=== PATIENT | male | born 1960 | race Caucasian/White ===

== ENCOUNTER 2024-11-13 07:20 | Day surgery (SDC) | payer BC ==
[2024-11-10 13:22] LABS: Absolute Basophils 0.1 K/uL (0-0.5); Absolute Eosinophils 0.2 K/uL (0-0.5); Absolute Lymphocytes (CBC) 2.2 K/uL (0.7-4.9); Absolute Monocytes 0.6 K/uL (0.1-1.3); Absolute Neutrophil 3.9 K/uL (1.8-8.0); Basophils % 0.7 % (0-1.3); Eosinophils % 3.5 % (0-4.4); Hematocrit 41.4 % (39.6-49.0); Hemoglobin 14.1 g/dL (13.6-17.9); Lymphocytes % 31.2 % (15.3-44.8); MCH 30.4 pg (27.0-35.0); MCHC 34.1 g/dL (32.0-36.0); MCV 88.9 fL (80-100); MPV 8.3 fL (7.6-11.3); Monocytes % 8.7 % (3.3-12.3); Neutrophils % 55.9 % (41.7-73.7); Platelets 326 thou/uL (152-406); RBC Red Blood Cell Count 4.66 M/uL (4.33-5.43); Red Cell Distribution Width 14.4 % (12.1-15.2)
--- NOTE | 2024-11-10 13:22 | RAD REPORT ---
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 COMPARISON: No prior exam. FINDINGS: The lungs are well inflated and clear. The heart is upper limit of normal in size. No displaced fract ures evident. Moderate hiatal hernia.
[2024-11-10 13:29] LABS: PT Prothrombin Time 10.3 SECONDS (10-13.0); PTT, Activated Partial Thromb 35.2 SECONDS (27.2-37.4); Protime INR 0.9
[2024-11-10 13:41] LABS: Anion Gap 6.5 mEq/L (5.0-15.0); Potassium 4.5 mEq/L (3.5-5.1)
--- NOTE | 2024-11-10 14:12 | EKG ---
Test Date: 2024-11-10 Test Time: 13:05:56 [place] Operator: YANN MEASUREMENT RESULTS: Intervals: Rate: 57 [place]: 154 QRSD: 88 QT: 442 QTc: 430 [place]: P: 64 [place]: 154 QRS: -11 T: 99 INTERPRETIVE STATEMENTS: Sinus bradycardia Nonspecific ST and T wave abnormality Abnormal ECG Compared to ECG 11/25/2004 08:14:00 ST (T wave) deviation now present Sinus rhythm no longer present Electronically Signed On 11-10-24 14:12:08 CDT by Ian Lazo
[2024-11-13] MEDS ORDERED: FENTANYL CITR 100 MCG/2 ML ONE (07:21)
[2024-11-13] MEDS ORDERED: MIDAZOLAM HCL 2 MG/2 ML INJ ONE (07:21)
[2024-11-13] MEDS ORDERED: NITROGLYCERIN/D5W 50 MG/250 ML BTL IV ONE (07:29)
[2024-11-13] MEDS ORDERED: HEPA 1000U/500MLS 2,000 UNIT/1,000 ML BAG IV ONE (07:29)
[2024-11-13] MEDS ORDERED: HEPARIN 10,000 UNIT/10 ML VIAL IV ONE (07:30)
[2024-11-13] MEDS ORDERED: LIDOCAINE 1% 20 ML MDV ONE (07:30)
[2024-11-13] MEDS: NA CHLORIDE 0.9% 500 ML ONE (08:32)
[2024-11-13 09:48] VITALS: O2SAT 98
[2024-11-13 10:52] VITALS: BP 119/86; TEMP 96.9
--- NOTE | 2024-11-13 11:21 | OP ---
Date of Procedure: 11/13/2024 Surgeon: Ian Lazo Procedure Performed: Bilateral renal angiogram. Indication For Procedure: High blood pressure with abnormal renal artery duplex. Complications: None. Estimated Blood Loss: Less than 50 cc. Access: Right common femoral artery, closed by Mynx. Sedation Time: 20 minutes with 1 of Versed and 25 of fentanyl. Description Of Procedure: After risks, and benefits, and alternatives were explained to the patient, patient agreed to proceed with procedure and signed informed consent. The patient was brought back to the solar lab technician, prepped and draped in a sterile fashion. Time-out was performed. Sedation was admi nistered. Next, the right common femoral artery, a 5-[place] access was obtained using an ultrasound- guided micropuncture technique. A 4-[place] IM catheter was advanced to the lower abdominal aorta. S elective angiogram was done of the right and left renal arteries. At the end of procedure, catheter was removed over a J-wire. Sheath was removed. Mynx was applied. Hemostasis was achieved, and the patient was moved back to recovery in stable condition. Findings: 1. The right renal artery with mid 20% to 30% calcified disease, then mild luminal irregularities. 2. Left renal artery with mild luminal irregularities. Assessment And Plan: Mild right renal artery disease with normal left renal artery. The plan is to continue aggressive medical treatment for blood pressure management. TERRI/ILANA Voice ID: [id number] Report ID: [id number]
== END 2024-11-13 10:28 | disposition home or self-care (01) ==
LOC: CCL 07:20
PROVIDERS: ADMIT Internal Medicine; ATTEND Internal Medicine Interventional Cardiology
DX: I70.1 Atherosclerosis of renal artery (principal); I10 Essential (primary) hypertension; E78.2 Mixed hyperlipidemia; Z87.891 Personal history of nicotine dependence; Z79.899 Other long term (current) drug therapy; Z83.3 Family history of diabetes mellitus
CPT/HCPCS: 93005; 85025; 80048; 36415; 85610; 85730; 71046; 36252; 76937; C1893; J2003; J2250; J3010; J7040; C1760; 99152; 99153